=== PATIENT | male | born 1930 | race American Indian/Alaskan Native ===

== ENCOUNTER 2017-05-22 15:11 | Emergency (ER) | payer MEDICARE, OTHER ==
[2017-05-22] MEDS ORDERED: Sodium Chloride 0.9% 2.5 ML Syringe FLUSH PRN (15:14)
[2017-05-22] MEDS ORDERED: Sodium Chloride 0.9% 10 ML Syringe FLUSH PRN (15:14)
--- NOTE | 2017-05-22 15:25 | EDM.PDOC ---
ED HPI GENERAL MEDICAL PROBLEM - General Chief Complaint: Cardiovascular Problem Stated Complaint: PT IS HERE FOR OBSERVATION Time Seen by Provider: 05/22/17 15:12 - History of Present Illness INITIAL COMMENTS - FREE TEXT/NARRATIVE: HISTORY AND PHYSICAL: History of present illness: The patient is a 87-year-old male who follows at [facility] and has a history of hypertension diabetes insulin requiring hypercholesterolemia and a CABG many years ago who presented to the clinic yesterday with complaints of 3 weeks of cough cold and congestion and he had evaluation there. According to his provider there she didn't EKG yesterday afternoon and was concerned about the EKG so she sent it to our bicycle ii assembler today who reviewed it and thought that it exhibited third-degree heart block so he contacted her and she contacted the patient and requested that he come in to our ER. On arrival here the patient says he has no chest pain no shortness of breath no abdominal pain no vomiting diarrhea fevers chills and is not lightheaded or dizzy. He doesn't have palpitations and states compliance with his medications. Is currently here with a caregiver and his is in route with his medication list. The patient is unclear as to why he is here and says he is completely asymptomatic. Review of systems: As per history of present illness and below otherwise all systems reviewed and negative. Past medical history: As per history of present illness and as reviewed below otherwise noncontributory. Surgical history: As per history of present illness and as reviewed below otherwise noncontributory. Social history: No reported history of drug or alcohol abuse. Family history: As per history of present illness and as reviewed below otherwise noncontributory. Physical exam: Gen.: Well-developed well-nourished man who is nontoxic and speaking clearly in the ED. Vital signs have been reviewed by me. Patient is hard of hearing HEENT: Atraumatic, normocephalic, negative for conjunctival pallor or scleral icterus, mucous membranes moist, throat clear, neck supple, nontender, trachea midline. Lungs: Clear to auscultation, breath sounds equal bilaterally, chest nontender. No worker breathing or sensory muscle use. There are some scattered coarse breath sounds but no wheezing or stridor Heart: S1S2, there are irregular beats but it is not regularly irregular, there is a soft systolic ejection murmur at the left sternal border Abdomen: Soft, nondistended, nontender. Negative for masses or hepatosplenomegaly. Negative for costovertebral tenderness. Pelvis: Stable nontender. Genitourinary: Deferred. Rectal: Deferred. Extremities: Atraumatic, negative for cords or calf pain. Neurovascular unremarkable. No pedal edema or leg asymmetry Neuro: Awake, alert, oriented. Cranial nerves II through XII unremarkable. Cerebellum unremarkable. Motor and sensory unremarkable throughout. Exam nonfocal. Diagnostics: EKG CBC CMP INR troponin BNP chest x-ray Therapeutics: IV O2 monitor pacer pads Prior to the patient coming to the ER Dr. Morrison was notified and brought the EKG from yesterday over. He will be available for consultation and has been paged to come and see the patient when he has an opportunity 1546: Dr Morrison is here in the ED evaluating the patient and is performing a repeat EKG. He will do a formal consult and advise me of his care plan. 1610: Repeat EKG does demonstrate third-degree heart block per the bicycle ii assembler Dr. Morrison and he speaking with the family regarding her level of treatment and what is desired by the patient and the family. 1615: Family would like to be transferred to [place] for Cardiologic evaluation and pacemaker placement if that continues to be indicated. They would like full care and we will arrange transferred to [place] via air as Dr. Morrison and I both feel that third-degree heart block is an unstable rhythm 1516: Case was discussed with Dr. Courtney at [place] [facility] in [place] and he accepts the patient for transfer and flight team is in route. Patient continues to remain stable with stable blood pressure and has no symptomatology. Critical care time excluding procedures:31min Impression: Third-degree heart block Definitive disposition and diagnosis as appropriate pending reevaluation and review of above. - Related Data Allergies Allergy/AdvReac Type Severity Reaction Status Date / Time No Known Allergies Allergy Verified 05/22/17 15:20 Home Meds: Home Meds Azithromycin [IJD: Azithromycin] 250 mg PO DAILY 05/22/17 [History] Finasteride 1 mg PO DAILY 05/22/17 [History] Glimepiride [Amaryl] 2 mg PO DAILY 05/22/17 [History] Isosorbide Mononitrate [Imdur] 0.5 mg PO DAILY 05/22/17 [History] Metoprolol Succinate [Toprol XL] 0.5 mg PO DAILY 05/22/17 [History] Nitroglycerin 0.4 mg SL 05/22/17 [History] Sulfamethoxazole/Trimethoprim [Sulfamethoxazole-Tmp Ds Tablet] 1 each PO [History] Past Medical History - Past Health History Medical/Surgical History: Denies Medical/Surgical History HEENT History: Reports: Hard of Hearing, Impaired Vision Cardiovascular History: Reports: Bypass, Hypertension Gastrointestinal History: Reports: Other (See Below) Other Gastrointestinal History: Pt reports recent diagnosis of hole in instestine Genitourinary History: Reports: BPH Endocrine/Metabolic History: Reports: Diabetes, Type II - Infectious Disease History Infectious Disease History: Reports: Chicken Pox, Measles, Mumps - Past Surgical History Cardiovascular Surgical History: Reports: Other (See Below) Other Cardiovascular Surgeries/Procedures: bypass GI Surgical History: Reports: Hernia Repair/Other Social & Family History - Family History Family Medical History: Noncontributory - Tobacco Use Smoking Status *Q: Never Smoker Used Tobacco, but Quit: Yes Month Tobacco Last Used: age 58 - Caffeine Use Caffeine Use: Reports: None - Recreational Drug Use Recreational Drug Use: No ED ROS GENERAL - Review of Systems Review Of Systems: ROS reveals no pertinent complaints other than HPI. ED EXAM, GENERAL - Physical Exam Exam: See Below (See dictation) Course - Vital Signs Last Recorded V/S: Last Vital Signs Temp 36.3 C 05/22/17 15:20 Pulse 54 L 05/22/17 16:21 Resp 13 05/22/17 16:21 BP 152/82 H 05/22/17 16:21 Pulse Ox 99 05/22/17 16:21 - Orders/Labs/Meds Orders: Active Orders 24 hr Category Date Time Status Blood Glucose Check, Bedside [RC] ONETIME Care 05/22/17 15:20 Active Cardiac Monitoring [RC] . DIRECTED Care 05/22/17 15:14 Active Communication Order [RC] STAT Care 05/22/17 15:21 Active EKG Documentation Completion [RC] STAT Care 05/22/17 15:14 Active Notify Provider Consults [RC] ASDIRECTED Care 05/22/17 15:47 Active Oxygen Therapy, ED [RC] ASDIRECTED Care 05/22/17 15:14 Active Pulse Oximetry [RC] ASDIRECTED Care 05/22/17 15:14 Active Consult to Physician [CONS] Stat Cons 05/22/17 15:47 Active Sodium Chloride 0.9% [Saline Flush] Med 05/22/17 15:14 Active 10 ml FLUSH ASDIRECTED PRN Sodium Chloride 0.9% [Saline Flush] Med 05/22/17 15:14 Active 2.5 ml FLUSH ASDIRECTED PRN Saline Lock Insert [OM.PC] Stat Oth 05/22/17 15:14 Ordered Medication Orders Sodium Chloride (Saline Flush) 10 ml FLUSH ASDIRECTED PRN PRN Reason: Keep Vein Open Last Admin: 05/22/17 15:36 Dose: 10 ml Sodium Chloride (Saline Flush) 2.5 ml FLUSH ASDIRECTED PRN PRN Reason: Keep Vein Open Last Admin: 05/22/17 15:36 Dose: 2.5 ml Labs: Laboratory Tests 05/22/17 05/22/17 05/22/17 Range/Units 15:18 15:18 15:18 WBC 8.43 (4.0-11.0) K/uL RBC 5.03 (4.50-5.90) M/uL Hgb 14.9 (13.0-17.0) g/dL Hct 43.5 (38.0-50.0) % MCV 86.5 (80.0-98.0) fL MCH 29.6 (27.0-32.0) pg MCHC 34.3 (31.0-37.0) g/dL RDW Std Deviation 44.1 (28.0-62.0) fl RDW Coeff of Heidi 14 (11.0-15.0) % Plt Count 345 (150-400) K/uL MPV 10.00 (7.40-12.00) fL Neut % (Auto) 57.3 (48.0-80.0) % Lymph % (Auto) 29.2 (16.0-40.0) % [place] % (Auto) 11.9 (0.0-15.0) % Eos % (Auto) 1.2 (0.0-7.0) % Baso % (Auto) 0.4 (0.0-1.5) % Neut # (Auto) 4.8 (1.4-5.7) K/uL Lymph # (Auto) 2.5 H (0.6-2.4) K/uL [place] # (Auto) 1.0 H (0.0-0.8) K/uL Eos # (Auto) 0.1 (0.0-0.7) K/uL Baso # (Auto) 0.0 (0.0-0.1) K/uL Nucleated RBC % 0.0 /100WBC Nucleated RBCs # 0 K/uL INR (0.86-1.11) Sodium 138 (136-146) mmol/L Potassium 4.1 (3.5-5.1) mmol/L Chloride 105 (98-110) mmol/L Carbon Dioxide 25 (21-31) mmol/L BUN 22 (6.0-23.0) mg/dL Creatinine 1.3 (0.6-1.5) mg/dL Est Cr Clr Drug Dosing 38.52 mL/min Estimated GFR (MDRD) 52.0 ml/min Glucose 195 H (60-110) mg/dL Calcium 9.4 (8.8-10.8) mg/dL Total Bilirubin 0.7 (0.1-1.5) mg/dL AST 13 (5-40) IU/L ALT 12 (8-54) IU/L Alkaline Phosphatase 84 (40-150) Troponin I < 0.10 (0.0-0.29) NG/ML B-Natriuretic Peptide 492 H (<100) PG/ML Total Protein 7.6 (6.0-8.0) g/dL Albumin 4.0 (3.4-4.8) g/dL Globulin 3.6 H (2.0-3.5) g/dL Albumin/Globulin Ratio 1.1 L (1.3-2.8) 05/22/17 Range/Units 15:18 WBC (4.0-11.0) K/uL RBC (4.50-5.90) M/uL Hgb (13.0-17.0) g/dL Hct (38.0-50.0) % MCV (80.0-98.0) fL MCH (27.0-32.0) pg MCHC (31.0-37.0) g/dL RDW Std Deviation (28.0-62.0) fl RDW Coeff of Heidi (11.0-15.0) % Plt Count (150-400) K/uL MPV (7.40-12.00) fL Neut % (Auto) (48.0-80.0) % Lymph % (Auto) (16.0-40.0) % [place] % (Auto) (0.0-15.0) % Eos % (Auto) (0.0-7.0) % Baso % (Auto) (0.0-1.5) % Neut # (Auto) (1.4-5.7) K/uL Lymph # (Auto) (0.6-2.4) K/uL [place] # (Auto) (0.0-0.8) K/uL Eos # (Auto) (0.0-0.7) K/uL Baso # (Auto) (0.0-0.1) K/uL Nucleated RBC % /100WBC Nucleated RBCs # K/uL INR 1.00 (0.86-1.11) Sodium (136-146) mmol/L Potassium (3.5-5.1) mmol/L Chloride (98-110) mmol/L Carbon Dioxide (21-31) mmol/L BUN (6.0-23.0) mg/dL Creatinine (0.6-1.5) mg/dL Est Cr Clr Drug Dosing mL/min Estimated GFR (MDRD) ml/min Glucose (60-110) mg/dL Calcium (8.8-10.8) mg/dL Total Bilirubin (0.1-1.5) mg/dL AST (5-40) IU/L ALT (8-54) IU/L Alkaline Phosphatase (40-150) Troponin I (0.0-0.29) NG/ML B-Natriuretic Peptide (<100) PG/ML Total Protein (6.0-8.0) g/dL Albumin (3.4-4.8) g/dL Globulin (2.0-3.5) g/dL Albumin/Globulin Ratio (1.3-2.8) Meds: Medications Generic Name Dose Route Start Last Admin Trade Name Freq PRN Reason Stop Dose Admin Sodium Chloride 10 ml 05/22/17 15:14 05/22/17 15:36 Saline Flush FLUSH 10 ml ASDIRECTED PRN Administration Keep Vein Open Sodium Chloride 2.5 ml 05/22/17 15:14 05/22/17 15:36 Saline Flush FLUSH 2.5 ml ASDIRECTED PRN Administration Keep Vein Open Departure - Departure Time of Disposition: 16:25 Disposition: DC/Tfer to Acute Hospital 02 Reason for Transfer *Q: Primary PCI Indicated Condition: Good Clinical Impression: Third degree heart block Referrals: PCP,None [Primary Care Provider] - Forms: ED Department Discharge - My Orders Last 24 Hours: My Active Orders 05/22/17 15:14 Cardiac Monitoring [RC] . DIRECTED EKG Documentation Completion [RC] STAT Oxygen Therapy, ED [RC] ASDIRECTED Pulse Oximetry [RC] ASDIRECTED Sodium Chloride 0.9% [Saline Flush] 10 ml FLUSH ASDIRECTED PRN Sodium Chloride 0.9% [Saline Flush] 2.5 ml FLUSH ASDIRECTED PRN Saline Lock Insert [OM.PC] Stat 05/22/17 15:20 Blood Glucose Check, Bedside [RC] ONETIME 05/22/17 15:21 Communication Order [RC] STAT 05/22/17 15:47 Notify Provider Consults [RC] ASDIRECTED Consult to Physician [CONS] Stat - Assessment/Plan Last 24 Hours: My Active Orders 05/22/17 15:14 Cardiac Monitoring [RC] . DIRECTED EKG Documentation Completion [RC] STAT Oxygen Therapy, ED [RC] ASDIRECTED Pulse Oximetry [RC] ASDIRECTED Sodium Chloride 0.9% [Saline Flush] 10 ml FLUSH ASDIRECTED PRN Sodium Chloride 0.9% [Saline Flush] 2.5 ml FLUSH ASDIRECTED PRN Saline Lock Insert [OM.PC] Stat 05/22/17 15:20 Blood Glucose Check, Bedside [RC] ONETIME 05/22/17 15:21 Communication Order [RC] STAT 05/22/17 15:47 Notify Provider Consults [RC] ASDIRECTED Consult to Physician [CONS] Stat
[2017-05-22 15:56] LABS: CHLORIDE,CL 105 mmol/L (98-110); SODIUM,NA 138 mmol/L (136-146)
--- NOTE | 2017-05-22 16:09 | CR ---
EXAMINATION: Portable chest radiograph. HISTORY: Shortness of breath. FINDINGS: The trachea is midline. The cardiomediastinal silhouette is within normal limits. No pulmonary infilt rates, effusions or pneumothorax. Median sternotomy wires are noted. Osseous structures appear unremarkable. Cortical thickening noted within the mid right humerus, corre late with previous injury. IMPRESSION: No acute cardiopulmonary process.
[2017-05-22 16:21] VITALS: BP 152/82
--- NOTE | 2017-05-22 22:12 | CONS ---
DATE OF CONSULTATION: DATE OF : 1930 PRIMARY CARE PHYSICIAN: None PCP REASON FOR CONSULTATION: Abnormal EKG. HISTORY OF PRESENT ILLNESS: This is an 87-year-old male, history of CAD, history of CABG 20 years ago, history of hypertension, diabetes, hyperlipidemia, BPH who was brought to the emergency room due to abnormal EKG. I got a call from Dr. George's office regarding abnormal EKG at around 12 to 1 p.m. on May 22, 2017, and it looks to me like a third-degree heart block due to bradycardia with heart rate of 46, and then I recommended and brought into the emergency room for further evaluation. When he came into the emergency room, his vital signs seemed to be normal with elevated blood pressure and blood pressure of 171/83 with a heart rate ranging between 40 to 50, and O2 saturation 97% on 4 L, respirations 13. He was seen by Dr. George recently because of productive cough, feverish, and the runny nose. He was prescribed azithromycin which he still has not completed a course of antibiotics yet. Other than that, his states that over the past 3 or 4 months, he had become more drowsy; however, he is still able to do walking on the daily basis without complaining of the feeling dizzy, shortness of breath, or chest pain. Also denied any passing out or syncope or leg swelling. He is also taking the metoprolol 25 mg for his high blood pressure; however, with bradycardia abnormal EKG was lowered down to 12.5, and when he comes to the emergency room with the repeated EKG confirmed that he has a complete heart block with a heart rate of 46. I recommended him to be transferred urgently to the tertiary care for possible pacemaker and the family all agree. Other than that, his labs seemed to be within the normal limits and INR is 1. Troponin was negative. BNP was mildly elevated 492, but on my exam he does not seem to be in heart failure. PAST MEDICAL HISTORY: Including CAD status post CABG, hypertension, hyperlipidemia, and BPH. ALLERGIES: No known drug allergies. MEDICATIONS: Include metoprolol 25 mg once a day and aspirin 325. SOCIAL HISTORY: He was a former smoker. No drug use. No alcohol use. REVIEW OF SYSTEMS: Negative except as indicated in HPI. PHYSICAL EXAMINATION: VITAL SIGNS: Blood pressure is initially 171/83 and coming down slightly to 152/82, heart rate ranged between 40 to 50, O2 saturation 99 on 4 L, respirations 13. HEENT: Mild pale. No jaundice. No JVD. HEART: Normal S1, S2. Bradycardia, irregularly irregular. LUNGS: Slight bibasilar dry crackles. ABDOMEN: Soft, nontender. Bowel sounds present. No hepatosplenomegaly. EXTREMITIES: Legs: No edema. LABORATORY INVESTIGATION: CBC show WBC of 8, hematocrit of 43, platelet is 345. INR is 1. Sodium 138, potassium 4.1, chloride 105, bicarb 25, BUN 22, creatinine 1.3. Glucose 195, calcium 94. Troponin less than 0.1. BNP 492. EKG May 22, 2017, 3:46 p.m. show a third-degree heart block. ASSESSMENT AND PLAN: This is an 87-year-old male patient, who has a history of coronary artery disease, coronary artery bypass graft with hypertension, hyperlipidemia, who presented to the hospital with a third-degree heart block with AV dissociation. He is on a beta-moon and he need to be observed in the ICU as well as stop the metoprolol and if he still has AV dissociation complete heart block, he probably need a pacemaker to be put in. I recommended him to [facility] where [facility] have potential to do a pacemaker placement by flight. ESTELLE MARSHALL /[id number]
== END 2017-05-22 17:01 ==
LOC: MW.ED 15:11
DX: I44.2 Atrioventricular block, complete (principal); E11.9 Type 2 diabetes mellitus without complications; I10 Essential (primary) hypertension; Z79.899 Other long term (current) drug therapy; Z95.1 Presence of aortocoronary bypass graft
CPT/HCPCS: 36415; 71045; 71045-26; 80053; 82962; 83880; 84484; 85025; 85610; 93005; 99285-25; 99291

== ENCOUNTER 2017-10-10 17:51 | Emergency (ER) | payer MEDICARE, OTHER ==
[2017-10-10 18:06] VITALS: BP 162/64
--- NOTE | 2017-10-10 18:06 | EDM.PDOC ---
ED HPI GENERAL MEDICAL PROBLEM - General Chief Complaint: General Stated Complaint: NEEDS A NEW CATHETER Time Seen by Provider: 10/10/17 17:59 - History of Present Illness INITIAL COMMENTS - FREE TEXT/NARRATIVE: HISTORY AND PHYSICAL: History of present illness: The patient is an 87-year-old male was had in a chronic indwelling Howard catheter and presents due to some Howard catheter malfunctioning and seeks evaluation for either change of catheter or correction of the problem. According to the ER chart he was seen in the emergency department on August 29 and was also seen by the urologist on September 30 for Howard catheter issues. The patient has a history of hypertension diabetes hypercholesterolemia CABG and takes medications for these chronic medical problems. The patient's called in prior to the patient coming to the ED concerned about one of the connections with the Howard in the leg bag and she said that the plastic was stretched and it was leaking. She said she placed some tape on it. The is currently not here in the emergency department with the patient but he says that that is his concern is that there was leakage. He denies any systemic complaints of fever chills cough chest pain abdominal pain and says he has been eating and drinking normally and feels great. He has no lightheadedness dizziness or any focal weakness or neurologic changes. The patient ambulated easily into the ED and says he has no concerns other than having his Howard evaluated. He is not the best historian for follow-up when I discussed his recent visit with the urologist. Review of systems: As per history of present illness and below otherwise all systems reviewed and negative. Past medical history: As per history of present illness and as reviewed below otherwise noncontributory. Surgical history: As per history of present illness and as reviewed below otherwise noncontributory. Social history: No reported history of drug or alcohol abuse. Family history: As per history of present illness and as reviewed below otherwise noncontributory. Physical exam: General: Well-developed well-nourished man who is nontoxic and vital signs have been reviewed by me. HEENT: Atraumatic, normocephalic, negative for conjunctival pallor or scleral icterus, mucous membranes moist, throat clear, neck supple, nontender, trachea midline. Lungs: Clear to auscultation, breath sounds equal bilaterally, chest nontender. Heart: S1S2, regular rhythm slightly bradycardic rate of my evaluation no overt murmurs are appreciated Abdomen: Soft, nondistended, nontender. Negative for masses or hepatosplenomegaly. Slightly hypoactive bowel sounds and there is no suprapubic tenderness or distention appreciated Pelvis: Stable nontender. Genitourinary: No evidence of any penile lesions or swelling and testicles are distended without any redness or swelling. Howard catheter is seen in place draining clear yellow urine and it appears that the connection between the catheter and the leg bag is the source of the problem once the tape is removed. The connector plastics seems to be stretched and this area is on the leg bag not on the Howard itself. Rectal: Deferred. Extremities: Atraumatic, negative for cords or calf pain. Neurovascular unremarkable. Neuro: Awake, alert, oriented. Normal gait into the ER Motor and sensory unremarkable throughout. Exam nonfocal. Diagnostics: [] Therapeutics: New leg bag Impression: Howard catheter problem/malfunction improved Definitive disposition and diagnosis as appropriate pending reevaluation and review of above. - Related Data Allergies Allergy/AdvReac Type Severity Reaction Status Date / Time No Known Allergies Allergy Verified 10/10/17 18:02 Home Meds: Home Meds Azithromycin [IJD: Azithromycin] 250 mg PO DAILY 05/22/17 [History] Finasteride 5 mg PO DAILY 05/22/17 [History] Glimepiride [Amaryl] 2 mg PO DAILY 05/22/17 [History] Isosorbide Mononitrate [Imdur] 0.5 mg PO DAILY 05/22/17 [History] Metoprolol Succinate [Toprol XL] 0.5 mg PO DAILY 05/22/17 [History] Nitroglycerin 0.4 mg SL 05/22/17 [History] Sulfamethoxazole/Trimethoprim [Sulfamethoxazole-Tmp Ds Tablet] 0.5 each PO BID 05/22/17 [History] Ciprofloxacin HCl [Cipro] 500 mg PO BID 08/29/17 [History] Furosemide [Lasix] 20 mg PO DAILY 08/29/17 [History] Latanoprost 1 drop OP BEDTIME 08/29/17 [History] Losartan [Cozaar] 50 mg PO DAILY 08/29/17 [History] Past Medical History - Past Health History Medical/Surgical History: Denies Medical/Surgical History HEENT History: Reports: Hard of Hearing, Impaired Vision Cardiovascular History: Reports: Bypass, Hypertension Gastrointestinal History: Reports: Other (See Below) Other Gastrointestinal History: Pt reports recent diagnosis of hole in instestine Genitourinary History: Reports: BPH Endocrine/Metabolic History: Reports: Diabetes, Type II - Infectious Disease History Infectious Disease History: Reports: Chicken Pox, Measles, Mumps - Past Surgical History Cardiovascular Surgical History: Reports: Other (See Below) Other Cardiovascular Surgeries/Procedures: bypass GI Surgical History: Reports: Hernia Repair/Other Social & Family History - Family History Family Medical History: Noncontributory - Caffeine Use Caffeine Use: Reports: None ED ROS GENERAL - Review of Systems Review Of Systems: ROS reveals no pertinent complaints other than HPI. ED EXAM, GENERAL - Physical Exam Exam: See Below (See dictation) Course - Vital Signs Last Recorded V/S: Last Vital Signs Temp 36.6 C 10/10/17 18:03 Pulse 47 L 10/10/17 18:03 Resp 16 10/10/17 18:03 BP 162/64 H 10/10/17 18:03 Pulse Ox 95 10/10/17 18:03 Departure - Departure Time of Disposition: 18:13 Disposition: Home, Self-Care 01 Condition: Good Clinical Impression: Howard catheter problem Qualifiers: Encounter type: sequela Qualified Code(s): T83.9XXS - Unspecified complication of genitourinary prosthetic device, implant and graft, sequela - Discharge Information Referrals: PCP,None [Primary Care Provider] - Forms: ED Department Discharge Additional Instructions: The following information is given to patients seen in the emergency department who are being discharged to home. This information is to outline your options for follow-up care. We provide all patients seen in our emergency department with a follow-up referral. The need for follow-up, as well as the timing and circumstances, are variable depending upon the specifics of your emergency department visit. If you don't have a primary care physician on staff, we will provide you with a referral. We always advise you to contact your personal physician following an emergency department visit to inform them of the circumstance of the visit and for follow-up with them and/or the need for any referrals to a consulting specialist. The emergency department will also refer you to a specialist when appropriate. This referral assures that you have the opportunity for followup care with a specialist. All of these measure are taken in an effort to provide you with optimal care, which includes your followup. Under all circumstances we always encourage you to contact your private physician who remains a resource for coordinating your care. When calling for followup care, please make the office aware that this follow-up is from your recent emergency room visit. If for any reason you are refused follow-up, please contact the [facility] emergency department at and ask to speak to the emergency department charge nurse. [facility]-Urology [address] [place] [id number] [facility] Primary care- Internal Medicine and Family [address] [address] Please connect new leg bag as shown and return to ER as needed and as discussed. Please call and schedule a follow-up appointment with your provider in the clinic or with the urologist
== END 2017-10-10 18:34 | disposition home or self-care (01) ==
LOC: MW.ED 17:51
DX: T83.018D Breakdown (mechanical) of other urinary catheter, subsequent encounter (principal); E11.9 Type 2 diabetes mellitus without complications; I10 Essential (primary) hypertension; Z79.899 Other long term (current) drug therapy
CPT/HCPCS: 99283

== ENCOUNTER 2017-12-28 17:37 | Emergency (ER) | payer MEDICARE, OTHER ==
--- NOTE | 2017-12-28 18:40 | EDM.PDOC ---
ED HPI GENERAL MEDICAL PROBLEM - General Chief Complaint: Genitourinary Problem Stated Complaint: CATHODER MALFUNCTION Time Seen by Provider: 12/28/17 18:21 Source of Information: Reports: Patient History Limitations: Reports: No Limitations - History of Present Illness INITIAL COMMENTS - FREE TEXT/NARRATIVE: HISTORY AND PHYSICAL: History of present illness: Patient is an 87-year-old male who presents to the emergency room today with complaints of urine leaking around his Shaw catheter. Dates the catheter was placed approximately one month ago and is due to see Dr. Rod on 12/31/2017. He has no current complaints. He denies any fever, chills, chest pain or shortness of breath. Denies any GI or symptoms other then the "leaky catheter ". He does not recall any trauma or pulling of the catheter. Has not noted any blood in the urine or around the meatus. Review of systems: As per history of present illness and below otherwise all systems reviewed and negative. Past medical history: As per history of present illness and as reviewed below otherwise noncontributory. Surgical history: As per history of present illness and as reviewed below otherwise noncontributory. Social history: No reported history of drug or alcohol abuse. Family history: As per history of present illness and as reviewed below otherwise noncontributory. Physical exam: General: Well-developed and well-nourished 87-year-old male. Alert and oriented. Nontoxic appearing and in no acute distress. HEENT: Atraumatic, normocephalic, pupils equal and reactive bilaterally, negative for conjunctival pallor or scleral icterus, mucous membranes moist, throat clear, neck supple, nontender, trachea midline. No drooling or trismus noted. No meningeal signs Lungs: Clear to auscultation, breath sounds equal bilaterally, chest nontender. Heart: S1S2, regular rate and rhythm without overt murmur Abdomen: Soft, nondistended, nontender. Negative for masses or hepatosplenomegaly. Negative for costovertebral tenderness. Pelvis: Stable nontender. Genitourinary: Patient has a shaw catheter [employer]. External genitalia appears WNL. No errythema or soft tissue swelling. Rectal: Deferred. Skin: Intact, warm, dry. No lesions or rashes noted. Extremities: Atraumatic, negative for cords or calf pain. Neurovascular unremarkable. Neuro: Awake, alert, oriented. Cranial nerves II through XII unremarkable. Cerebellum unremarkable. Motor and sensory unremarkable throughout. Exam nonfocal. Notes: Patient does have urine on his pants where the Shaw was leaking. Will change out the Shaw catheter. Nursing staff did complete this. Patient tolerated well. Patient education was done. Urinalysis shows no evidence of UTI. Patient will keep his appointment with the urologist. Denies any further questions or concerns at this time. Diagnostics: UA Therapeutics: Shaw Catheter Replacement Prescription: Cipro BID x 7 days Impression: Encounter for Shaw catheter change UTI Plan: 1. Please keep your appointment with Dr. Rod 12/31/17. 2. Return to the emergency room as needed and as discussed. Definitive disposition and diagnosis as appropriate pending reevaluation and review of above. - Related Data Allergies Allergy/AdvReac Type Severity Reaction Status Date / Time No Known Allergies Allergy Verified 12/28/17 18:02 Home Meds: Home Meds Finasteride 5 mg PO DAILY 05/22/17 [History] Glimepiride [Amaryl] 2 mg PO DAILY 05/22/17 [History] Nitroglycerin 0.4 mg SL ASDIRECTED 05/22/17 [History] Furosemide [Lasix] 20 mg PO DAILY 08/29/17 [History] Latanoprost 1 drop OP BEDTIME 08/29/17 [History] Losartan [Cozaar] 50 mg PO DAILY 08/29/17 [History] Aspirin 325 mg PO DAILY 12/28/17 [History] Past Medical History - Past Health History Medical/Surgical History: Denies Medical/Surgical History HEENT History: Reports: Hard of Hearing, Impaired Vision Cardiovascular History: Reports: Bypass, Hypertension Gastrointestinal History: Reports: Other (See Below) Other Gastrointestinal History: Pt reports recent diagnosis of hole in instestine Genitourinary History: Reports: BPH, Urinary Incontinence, Other (See Below) Other Genitourinary History: persistent catheter Endocrine/Metabolic History: Reports: Diabetes, Type II - Infectious Disease History Infectious Disease History: Reports: Chicken Pox - Past Surgical History Cardiovascular Surgical History: Reports: Other (See Below) Other Cardiovascular Surgeries/Procedures: bypass GI Surgical History: Reports: Hernia Repair/Other Social & Family History - Family History Family Medical History: Noncontributory - Tobacco Use Smoking Status *Q: Former Smoker Used Tobacco, but Quit: Yes Month/Year Tobacco Last Used: 1949 - Caffeine Use Caffeine Use: Reports: Coffee - Recreational Drug Use Recreational Drug Use: No ED ROS GENERAL - Review of Systems Review Of Systems: ROS reveals no pertinent complaints other than HPI. ED EXAM, RENAL/ - Physical Exam Exam: See Below (See dictation) Course - Vital Signs Last Recorded V/S: Last Vital Signs Temp 96.2 F 12/28/17 18:00 Pulse 77 12/28/17 19:24 Resp 21 H 12/28/17 19:24 BP 164/92 H 12/28/17 19:24 Pulse Ox 97 12/28/17 19:24 - Orders/Labs/Meds Orders: Active Orders 24 hr Category Date Time Status CULTURE URINE [RM] Stat Lab 12/28/17 19:40 Ordered UA W/MICROSCOPIC [URIN] Stat Lab 12/28/17 19:40 Ordered Labs: Laboratory Tests 12/28/17 Range/Units 19:40 Urine Color YELLOW Urine Appearance HAZY Urine pH 6.5 (5.0-8.0) Ur Specific [place] 1.025 (1.001-1.035) Urine Protein 100 (NEGATIVE) mg/dL Urine Glucose (UA) NEGATIVE (NEGATIVE) mg/dL Urine Ketones NEGATIVE (NEGATIVE) mg/dL Urine Occult Blood LARGE H (NEGATIVE) Urine Nitrite NEGATIVE (NEGATIVE) Urine Bilirubin NEGATIVE (NEGATIVE) Urine Urobilinogen 0.2 (<2.0) EU/dL Ur Leukocyte Esterase MODERATE (NEGATIVE) Urine RBC 25-30 (0-2/HPF) Urine WBC 18-20 (0-5/HPF) Ur Epithelial Cells RARE (NONE-FEW) Urine Bacteria FEW (NEGATIVE) Urinalysis Comment Departure - Departure Time of Disposition: 19:52 Disposition: Home, Self-Care 01 Clinical Impression: Encounter for Shaw catheter replacement, UTI, Urinary tract infectious disease - Discharge Information Instructions: Indwelling Urinary Catheter Care, Adult, Urinary Tract Infection , Adult, [id number] Referrals: PCP,None [Primary Care Provider] - Forms: ED Department Discharge Additional Instructions: The following information is given to patients seen in the emergency department who are being discharged to home. This information is to outline your options for follow-up care. We provide all patients seen in our emergency department with a follow-up referral. The need for follow-up, as well as the timing and circumstances, are variable depending upon the specifics of your emergency department visit. If you don't have a primary care physician on staff, we will provide you with a referral. We always advise you to contact your personal physician following an emergency department visit to inform them of the circumstance of the visit and for follow-up with them and/or the need for any referrals to a consulting specialist. The emergency department will also refer you to a specialist when appropriate. This referral assures that you have the opportunity for follow-up care with a specialist. All of these measure are taken in an effort to provide you with optimal care, which includes your follow-up. Under all circumstances we always encourage you to contact your private physician who remains a resource for coordinating your care. When calling for follow-up care, please make the office aware that this follow-up is from your recent emergency room visit. If for any reason you are refused follow-up, please contact the [facility] Emergency Department at and asked to speak to the emergency department charge nurse. [facility] Primary [facility] [address] [place] [address] [facility] Specialty Care - Urology [address] [place] [address] 1. Take your antibiotic as directed. Please keep your appointment with Dr. Mccracken 12/31/17. 2. Return to the emergency room as needed and as discussed. - My Orders Last 24 Hours: My Active Orders 12/28/17 19:40 CULTURE URINE [RM] Stat UA W/MICROSCOPIC [URIN] Stat - Assessment/Plan Last 24 Hours: My Active Orders 12/28/17 19:40 CULTURE URINE [RM] Stat UA W/MICROSCOPIC [URIN] Stat
[2017-12-28 19:25] VITALS: BP 164/92
== END 2017-12-28 20:10 | disposition home or self-care (01) ==
LOC: MW.ED 17:37
DX: N39.0 Urinary tract infection, site not specified (principal); E11.9 Type 2 diabetes mellitus without complications; I10 Essential (primary) hypertension; Z87.891 Personal history of nicotine dependence; Z79.899 Other long term (current) drug therapy; Z79.82 Long term (current) use of aspirin
CPT/HCPCS: 81001; 87086; 87088; 99282; 99283

== ENCOUNTER 2018-02-01 16:04 | Emergency (ER) | payer MEDICARE, OTHER ==
[2018-02-01] MEDS ORDERED: Sodium Chloride 0.9% 10 ML Syringe FLUSH PRN (16:09)
[2018-02-01] MEDS ORDERED: Sodium Chloride 0.9% 1,000 ML IV ONE (16:09)
[2018-02-01] MEDS ORDERED: Sodium Chloride 0.9% 2.5 ML Syringe FLUSH PRN (16:09)
--- NOTE | 2018-02-01 16:24 | EDM.PDOC ---
ED HPI GENERAL MEDICAL PROBLEM - General Chief Complaint: Chest Pain Stated Complaint: CHEST PAIN Time Seen by Provider: 02/01/18 16:10 Source of Information: Reports: Family History Limitations: Reports: No Limitations - History of Present Illness INITIAL COMMENTS - FREE TEXT/NARRATIVE: History of present illness: []Patient complained of epigastric pain prior to arrival and his gave him 2 nitroglycerin tablets. He needed assistance out of his car and arrived confused, diaphoretic and hypotensive. He did continue to complain of epigastric pain and he was placed in the bed. Review of systems: As per history of present illness and below otherwise all systems reviewed and negative. Past medical history: As per history of present illness and as reviewed below otherwise noncontributory. Surgical history: As per history of present illness and as reviewed below otherwise noncontributory. Social history: No reported history of drug or alcohol abuse. Family history: As per history of present illness and as reviewed below otherwise noncontributory. Physical exam: General: Well developed, well nourished in NAD HEENT: Atraumatic, normocephalic, pupils reactive, negative for conjunctival pallor or scleral icterus, mucous membranes dry, throat clear, neck supple, nontender, trachea midline. Lungs: Clear to auscultation, breath sounds equal bilaterally, chest nontender. Heart: S1S2, regular, negative for clicks, rubs, or JVD. Abdomen: Soft, distended, diffuse tenderness without rebound or guarding. Negative for masses or hepatosplenomegaly. Negative for costovertebral tenderness. Pelvis: Stable nontender. Genitourinary: Deferred. Rectal: Deferred. Extremities: Atraumatic, negative for cords or calf pain. Neurovascular unremarkable. Neuro: Awake, alert, oriented. Cranial nerves II through XII unremarkable. Cerebellum unremarkable. Motor and sensory unremarkable throughout. Exam nonfocal. Skin:warm and dry Diagnostics: CBC, chemistry, troponin, EKG, acute abdominal x-ray series on the UA The[employer]: IV fluids, morphine for pain ED Course: Patient's blood pressure improved after he was brought to the room given a fluid bolus. It appears it dropped from the nitroglycerin since he remained stable while in the ED Impression: UTI Prescriptions: Cipro Plan: Increase fluids take meds as directed follow-up with urology or primary care. Definitive disposition and diagnosis as appropriate pending reevaluation and review of above. Upper Abdomen Pain Score (Numeric/FACES): 7 - Related Data Allergies Allergy/AdvReac Type Severity Reaction Status Date / Time No Known Allergies Allergy Verified 02/01/18 16:10 Home Meds: Home Meds Finasteride 5 mg PO DAILY 05/22/17 [History] Glimepiride [Amaryl] 2 mg PO DAILY 05/22/17 [History] Nitroglycerin 0.4 mg SL ASDIRECTED 05/22/17 [History] Furosemide [Lasix] 20 mg PO DAILY 08/29/17 [History] Latanoprost 1 drop OP BEDTIME 08/29/17 [History] Losartan [Cozaar] 50 mg PO DAILY 08/29/17 [History] Aspirin 325 mg PO DAILY 12/28/17 [History] Ciprofloxacin HCl [Cipro] 500 mg PO BID #20 tablet 02/01/18 [Rx] Past Medical History - Past Health History Medical/Surgical History: Denies Medical/Surgical History HEENT History: Reports: Hard of Hearing, Impaired Vision Cardiovascular History: Reports: Bypass, Hypertension Gastrointestinal History: Reports: Other (See Below) Other Gastrointestinal History: Pt reports recent diagnosis of hole in instestine Genitourinary History: Reports: BPH, Urinary Incontinence, Other (See Below) Other Genitourinary History: persistent catheter Endocrine/Metabolic History: Reports: Diabetes, Type II - Infectious Disease History Infectious Disease History: Reports: Chicken Pox - Past Surgical History Cardiovascular Surgical History: Reports: Other (See Below) Other Cardiovascular Surgeries/Procedures: bypass GI Surgical History: Reports: Hernia Repair/Other Social & Family History - Family History Family Medical History: Noncontributory - Caffeine Use Caffeine Use: Reports: Coffee ED ROS GENERAL - Review of Systems Review Of Systems: ROS reveals no pertinent complaints other than HPI. ED EXAM, GENERAL - Physical Exam Exam: See Below (The history of present illness) Course - Vital Signs Last Recorded V/S: Last Vital Signs Temp 96.4 F 02/01/18 16:05 Pulse 57 L 02/01/18 16:05 Resp 24 H 02/01/18 16:05 BP 95/57 L 02/01/18 16:05 Pulse Ox 97 02/01/18 16:05 - Orders/Labs/Meds Orders: Active Orders 24 hr Category Date Time Status EKG Documentation Completion [RC] STAT Care 02/01/18 16:09 Active Acute Abdominal Series [Abdomen 1V Upright] [CR] Stat Exams 02/01/18 16:48 Taken Sodium Chloride 0.9% [Saline Flush] Med 02/01/18 16:09 Active 10 ml FLUSH ASDIRECTED PRN Sodium Chloride 0.9% [Saline Flush] Med 02/01/18 16:09 Active 2.5 ml FLUSH ASDIRECTED PRN Saline Lock Insert [OM.PC] Stat Oth 02/01/18 16:09 Ordered Medication Orders Sodium Chloride (Saline Flush) 10 ml FLUSH ASDIRECTED PRN PRN Reason: Keep Vein Open Sodium Chloride (Saline Flush) 2.5 ml FLUSH ASDIRECTED PRN PRN Reason: Keep Vein Open Labs: Laboratory Tests 02/01/18 02/01/18 02/01/18 Range/Units 16:05 16:05 16:05 WBC 10.25 (4.0-11.0) K/uL RBC 4.59 (4.50-5.90) M/uL Hgb 13.6 (13.0-17.0) g/dL Hct 39.6 (38.0-50.0) % MCV 86.3 (80.0-98.0) fL MCH 29.6 (27.0-32.0) pg MCHC 34.3 (31.0-37.0) g/dL RDW Std Deviation 46.4 (28.0-62.0) fl RDW Coeff of Heidi 15 (11.0-15.0) % Plt Count 322 (150-400) K/uL MPV 10.50 (7.40-12.00) fL Neut % (Auto) 57.4 (48.0-80.0) % Lymph % (Auto) 27.3 (16.0-40.0) % [place] % (Auto) 13.3 (0.0-15.0) % Eos % (Auto) 1.5 (0.0-7.0) % Baso % (Auto) 0.5 (0.0-1.5) % Neut # (Auto) 5.9 H (1.4-5.7) K/uL Lymph # (Auto) 2.8 H (0.6-2.4) K/uL [place] # (Auto) 1.4 H (0.0-0.8) K/uL Eos # (Auto) 0.2 (0.0-0.7) K/uL Baso # (Auto) 0.1 (0.0-0.1) K/uL Nucleated RBC % 0.0 /100WBC Nucleated RBCs # 0 K/uL Lactate (0.20-2.00) mmol/L Sodium 137 (136-148) mmol/L Potassium 3.9 (3.5-5.1) mmol/L Chloride 103 (98-107) mmol/L Carbon Dioxide 23.7 (21.0-32.0) mmol/L BUN 18 (7.0-18.0) mg/dL Creatinine 1.5 H (0.8-1.3) mg/dL Est Cr Clr Drug Dosing TNP Estimated GFR (MDRD) 44.1 ml/min Glucose 197 H (74-106) mg/dL Calcium 8.6 (8.5-10.1) mg/dL Total Bilirubin 0.7 (0.2-1.0) mg/dL AST 13 L (15-37) IU/L ALT 16 (14-63) IU/L Alkaline Phosphatase 115 (46-116) U/L Troponin I < 0.050 (0.000-0.056) ng/mL Total Protein 7.2 (6.4-8.2) g/dL Albumin 3.4 (3.4-5.0) g/dL Globulin 3.8 H (2.0-3.5) g/dL Albumin/Globulin Ratio 0.9 L (1.3-2.8) Lipase 170 (73-393) U/L Urine Color Urine Appearance Urine pH (5.0-8.0) Ur Specific [place] (1.001-1.035) Urine Protein (NEGATIVE) mg/dL Urine Glucose (UA) (NEGATIVE) mg/dL Urine Ketones (NEGATIVE) mg/dL Urine Occult Blood (NEGATIVE) Urine Nitrite (NEGATIVE) Urine Bilirubin (NEGATIVE) Urine Urobilinogen (<2.0) EU/dL Ur Leukocyte Esterase (NEGATIVE) Urine RBC (0-2/HPF) Urine WBC (0-5/HPF) Ur Epithelial Cells (NONE-FEW) Urine Bacteria (NEGATIVE) Urine Mucus (NONE-MOD) Urinalysis Comment 02/01/18 02/01/18 Range/Units 16:38 16:50 WBC (4.0-11.0) K/uL RBC (4.50-5.90) M/uL Hgb (13.0-17.0) g/dL Hct (38.0-50.0) % MCV (80.0-98.0) fL MCH (27.0-32.0) pg MCHC (31.0-37.0) g/dL RDW Std Deviation (28.0-62.0) fl RDW Coeff of [place]idi (11.0-15.0) % Plt Count (150-400) K/uL MPV (7.40-12.00) fL Neut % (Auto) (48.0-80.0) % Lymph % (Auto) (16.0-40.0) % [place] % (Auto) (0.0-15.0) % Eos % (Auto) (0.0-7.0) % Baso % (Auto) (0.0-1.5) % Neut # (Auto) (1.4-5.7) K/uL Lymph # (Auto) (0.6-2.4) K/uL [place] # (Auto) (0.0-0.8) K/uL Eos # (Auto) (0.0-0.7) K/uL Baso # (Auto) (0.0-0.1) K/uL Nucleated RBC % /100WBC Nucleated RBCs # K/uL Lactate 1.3 (0.20-2.00) mmol/L Sodium (136-148) mmol/L Potassium (3.5-5.1) mmol/L Chloride (98-107) mmol/L Carbon Dioxide (21.0-32.0) mmol/L BUN (7.0-18.0) mg/dL Creatinine (0.8-1.3) mg/dL Est Cr Clr Drug Dosing Estimated GFR (MDRD) ml/min Glucose (74-106) mg/dL Calcium (8.5-10.1) mg/dL Total Bilirubin (0.2-1.0) mg/dL AST (15-37) IU/L ALT (14-63) IU/L Alkaline Phosphatase (46-116) U/L Troponin I (0.000-0.056) ng/mL Total Protein (6.4-8.2) g/dL Albumin (3.4-5.0) g/dL Globulin (2.0-3.5) g/dL Albumin/Globulin Ratio (1.3-2.8) Lipase (73-393) U/L Urine Color YELLOW Urine Appearance CLOUDY Urine pH 6.5 (5.0-8.0) Ur Specific [place] 1.015 (1.001-1.035) Urine Protein NEGATIVE (NEGATIVE) mg/dL Urine Glucose (UA) NEGATIVE (NEGATIVE) mg/dL Urine Ketones NEGATIVE (NEGATIVE) mg/dL Urine Occult Blood TRACE-LYSED (NEGATIVE) Urine Nitrite POSITIVE H (NEGATIVE) Urine Bilirubin NEGATIVE (NEGATIVE) Urine Urobilinogen 0.2 (<2.0) EU/dL Ur Leukocyte Esterase LARGE (NEGATIVE) Urine RBC 0-2 (0-2/HPF) Urine WBC 35-40 (0-5/HPF) Ur Epithelial Cells OCCASIONAL (NONE-FEW) Urine Bacteria 2+ H (NEGATIVE) Urine Mucus LIGHT (NONE-MOD) Urinalysis Comment Meds: Medications Generic Name Dose Route Start Last Admin Trade Name Freq PRN Reason Stop Dose Admin Sodium Chloride 10 ml 02/01/18 16:09 Saline Flush FLUSH ASDIRECTED PRN Keep Vein Open Sodium Chloride 2.5 ml 02/01/18 16:09 Saline Flush FLUSH ASDIRECTED PRN Keep Vein Open Discontinued Medications Generic Name Dose Route Start Last Admin Trade Name Freq PRN Reason Stop Dose Admin Sodium Chloride 1,000 mls @ 999 mls/hr 02/01/18 16:09 02/01/18 17:21 Normal Saline IV 02/01/18 17:09 999 mls/hr .Bolus ONE Administration Morphine Sulfate 2 mg 02/01/18 17:21 02/01/18 17:33 Morphine IVPUSH 02/01/18 17:22 2 mg ONETIME ONE Administration Ondansetron HCl 4 mg 02/01/18 17:24 02/01/18 17:31 Zofran IVPUSH 02/01/18 17:25 4 mg ONETIME ONE Administration Departure - Departure Time of Disposition: 17:40 Disposition: Home, Self-Care 01 Condition: Good Clinical Impression: UTI (urinary tract infection) Qualifiers: Urinary tract infection type: catheter-associated UTI Indwelling urinary catheter type: indwelling urethral catheter Encounter type: initial encounter Qualified Code(s): T83.511A - Infection and inflammatory reaction due to indwelling urethral catheter, initial encounter; N39.0 - Urinary tract infection , site not specified - Discharge Information *PRESCRIPTION DRUG MONITORING PROGRAM REVIEWED*: No *COPY OF PRESCRIPTION DRUG MONITORING REPORT IN PATIENT KEMI: No Prescriptions: Ciprofloxacin HCl [Cipro] 500 mg PO BID #20 tablet Referrals: Viola George MD [Primary Care Provider] - Forms: ED Department Discharge Additional Instructions: The following information is given to patients seen in the emergency department who are being discharged to home. This information is to outline your options for follow-up care. We provide all patients seen in our emergency department with a follow-up referral. The need for follow-up, as well as the timing and circumstances, are variable depending upon the specifics of your emergency department visit. If you don't have a primary care physician on staff, we will provide you with a referral. We always advise you to contact your personal physician following an emergency department visit to inform them of the circumstance of the visit and for follow-up with them and/or the need for any referrals to a consulting specialist. The emergency department will also refer you to a specialist when appropriate. This referral assures that you have the opportunity for follow-up care with a specialist. All of these measure are taken in an effort to provide you with optimal care, which includes your follow-up. Under all circumstances we always encourage you to contact your private physician who remains a resource for coordinating your care. When calling for follow-up care, please make the office aware that this follow-up is from your recent emergency room visit. If for any reason you are refused follow-up, please contact the [facility] Emergency Department at and asked to speak to the emergency department charge nurse. Fill Cipro to take as directed and increase fluids follow-up with primary care or urology. [facility] Primary Care [address] [place] [id number] [facility] Specialty Care - Urology [address] [place] [address] - My Orders Last 24 Hours: My Active Orders 02/01/18 16:09 EKG Documentation Completion [RC] STAT Sodium Chloride 0.9% [Saline Flush] 10 ml FLUSH ASDIRECTED PRN Sodium Chloride 0.9% [Saline Flush] 2.5 ml FLUSH ASDIRECTED PRN Saline Lock Insert [OM.PC] Stat 02/01/18 16:48 Acute Abdominal Series [Abdomen 1V Upright] [CR] Stat - Assessment/Plan Last 24 Hours: My Active Orders 02/01/18 16:09 EKG Documentation Completion [RC] STAT Sodium Chloride 0.9% [Saline Flush] 10 ml FLUSH ASDIRECTED PRN Sodium Chloride 0.9% [Saline Flush] 2.5 ml FLUSH ASDIRECTED PRN Saline Lock Insert [OM.PC] Stat 02/01/18 16:48 Acute Abdominal Series [Abdomen 1V Upright] [CR] Stat
[2018-02-01 16:46] LABS: CHLORIDE,CL 103 mmol/L (98-107); SODIUM,NA 137 mmol/L (136-148)
[2018-02-01] MEDS ORDERED: Morphine 2 MG/ML Syringe IVPUSH ONE (17:21)
[2018-02-01] MEDS ORDERED: Ondansetron 4 MG/2 ML SDV IVPUSH ONE (17:24)
[2018-02-01] MEDS ORDERED: cefTRIAXone 1 GM in Premix Bag 1 BAG IV ONE (17:35)
[2018-02-01] MEDS ORDERED: Metoclopramide 10 MG/2 ML SDV IV ONE (18:11)
[2018-02-02 09:28] VITALS: BP 129/57
--- NOTE | 2018-02-03 13:23 | CR ---
EXAM DATE: 02/01/18 PATIENT'S AGE: 87 Patient: ADILENE STOLL Facility: [facility] [place], [place] Site . Site : [id number] Study: XRay Abdomen [id number] 5:20:15 PM Ordering Physician: Hilton Gibson Final Report: INDICATION: Abdominal distension TECHNIQUE: Two view abdomen. FINDINGS: Air within nondilated loops of bowel to the level of the rectum. No definite free air is seen. Abundant stool in the colon. Lower pelvis is not imaged. IMPRESSION: Nonspecific nonobstructive bowel gas pattern. Dictated by Norma Brice MD @ Feb 01 2018 5:21PM (Electronic Signature) Report Signed by Proxy. BART
== END 2018-02-01 18:36 | disposition home or self-care (01) ==
LOC: MW.ED 16:04
DX: T83.511A Infection and inflammatory reaction due to indwelling urethral catheter, initial encounter (principal); N39.0 Urinary tract infection, site not specified; I10 Essential (primary) hypertension; E11.9 Type 2 diabetes mellitus without complications; Z79.84 Long term (current) use of oral hypoglycemic drugs; Z79.899 Other long term (current) drug therapy; Z79.82 Long term (current) use of aspirin; Z95.1 Presence of aortocoronary bypass graft; Z87.891 Personal history of nicotine dependence
CPT/HCPCS: 36415; 74018; 80053; 81001; 83605; 83690; 84484; 85025; 93005; 96361; 96365; 96375; 99285; J0696; J2270; J2405; J2765; J7040; 99283